=== PATIENT | female | born 1930 | race Caucasian/White ===

== ENCOUNTER 2019-09-08 07:20 | Inpatient (IN) ==
[2019-09-08] MEDS ORDERED: MORPHINE IV ONE (07:43)
[2019-09-08] MEDS ORDERED: ZOFRAN IV ONE (07:43)
[2019-09-08] MEDS ORDERED: NS 1,000 ML IV ONE (07:43)
--- NOTE | 2019-09-08 08:12 | EKG Report ---
Test Performed on : 09/08/2019 07:51:44 AM Test Reason : fall Blood Pressure : / mmHG Vent. Rate : 069 BPM Atrial Rate : 070 BPM P-R Int : 000 ms QRS Dur : 114 ms QT Int : 452 ms P-R-T Axes : 000 -12 -37 degrees QTc Int : 484 ms Accelerated Junctional rhythm. Incomplete right bundle branch block Inferior infarct , age undetermined ST & T wave abnormality, consider anterior ischemia Abnormal ECG No previous ECGs available Unconfirmed Result
[2019-09-08 08:28] LABS: BASO# 0.02 X1000 (0.0-0.2); BASO% 0.2 % (0.0-0.8); EOS# 0.04 X1000 (0.0-0.7); EOS% 0.3 % (0.0-10.0); HEMATOCRIT 34.7 % (37.0-47.0); IMM GRAN# 0.06 X1000 (0.0-0.04); IMM GRAN% 0.5 % (0.0-0.5); MCHC 31.7 g/dL (33-37); MCV 97.7 FL (81-99); MONO# 0.98 X1000 (0.11-0.59); MONO% 7.4 % (1.7-9.3); MPV 8.8 FL (7.4-10.4); NEUT# 10.96 X1000 (1.4-6.5); NEUT% 82.6 % (42.2-75.2); PLT 452 X1000 (130-400); RBC 3.55 XMIL (4.2-5.4); RDW 13.7 % (11.5-14.5); WBC 13.26 X1000 (4.8-10.8)
--- NOTE | 2019-09-08 08:44 | PROVIDER DOCUMENTATION ---
HPI-Musculoskeletal Pain/Inj - GENERAL Chief Complaint: Fall Stated Complaint: FALL / HIP Time Seen by Provider: 09/08/19 07:35 Source: patient, family (Granddaughter and daughter) - HX OF PRESENT ILLNESS-MUSKULOSKELTAL Nature of Presenting Problem: Recently moved here from [place], was bending over trying to put a sock on and fell over on right hip. Patient lifted up by Granddaughter, able to bear weight with lots of pain and assistance. Has history of prior hip surgery, but can't remember which one. Granddaughter states "she has dementia." Quality of Pain: reports: stabbing Severity in ED: severe Onset/Duration: 1 hour ago Timing: still present, constant Modifying Factors: worse with: movement, palpation, other (bearing weight) Any recent injury?: Yes Locality of Occurance: Home Similar Symptoms Previously?: No Recently seen or treated by another doctor?: No - FALL INJURY Location of Pain/Injury: reports: lower extremity (right) Pain Radiation: reports: no radiation Reason for Fall: reports: lost balance Symptoms prior to fall:: reports: none Loss of Consciousness: no loss of consciousness Injury Associated Symptoms: reports: denies symptoms - HIP/PELVIS PAIN/INJURY Hip Pain Location: reports: hip (R) Pain Radiation: reports: other (right knee) Context / Method of Injury: reports: fall Associated Symptoms: reports: denies symptoms Review of Systems - Adult - REVIEW OF SYSTEMS - ADULT Constitutional: reports: no symptoms reported Eyes: reports: no symptoms reported Ears, Nose, Mouth & Throat: reports: no symptoms reported Cardiovascular: reports: no symptoms reported Respiratory: reports: no symptoms reported Gastrointestinal: reports: no symptoms reported Genitourinary: reports: no symptoms reported Musculoskeletal: reports: no symptoms reported Integumentary: reports: no symptoms reported Neurological: reports: no symptoms reported Psychiatric: reports: no symptoms reported Endocrine: reports: no symptoms reported Hematologic/Lymphatic: reports: no symptoms reported Allergic/Immunologic: reports: no symptoms reported All Other Systems: Reviewed and Negative Past History - Adult - PAST MEDICAL HISTORY-ADULT Review of Records: reports: Nursing Assessment Review, Medications Reviewed, Social history reviewed & non-contributory. Major Childhood Illnesses: reports: denies history Cardiovascular: reports: HTN, hyperlipidemia Respiratory: reports: denies history Gastrointestinal: reports: denies history Obstetrical/Gynecological: reports: denies history Genitourinary: reports: denies history Musculoskeletal: reports: denies history Neurological: reports: Alzheimer's, dementia Endocrine/Immune: reports: denies history Other Conditions: reports: denies history - PRIOR SURGERIES/PROCEDURES Surgical/Procedure History: reports: reviewed, not pertinent - IMMUNIZATION STATUS Childhood Immunizations: UTD Flu Vaccine: NUTD - FAMILY HISTORY Family History: reviewed, not pertinent - SOCIAL HISTORY Smoking: quit greater than 1 year, cigarettes Substance Use: none/never Alcohol Use Frequency: never Living Situation: family Physical Exam-Injury Related - Physical Exam-Injury Related Initial Vital Signs Reviewed: Yes (VSSAF) General Appearance: appears well, alert, no apparent distress, other (elderly, sl confusion) Eyes: PERRL/EOMI, pink conjunctivae Head, Ears, Nose, Mouth & Throat: normocephalic/atraumatic, moist mucous membranes, normal ENT inspection, hearing deficit Neck: non-tender, full range of motion, supple, normal inspection. negative: pain with axial compression Respiratory: chest non-tender, lungs clear, normal breath sounds, no pleuratic chest pain, no respiratory distress, no accessory muscle use Cardiovascular: normal peripheral pulses, regular rate, rhythm, no edema, no gallop, no JVD, no murmur Abdominal Exam: normal bowel sounds, non tender, soft, no organomegaly, no pulsatile mass Lymphatic: no adenopathy Back Exam: normal inspection, no CVA tenderness, no vertebral tenderness. negative: decreased range of motion Extremity: no pedal edema, no calf tenderness, normal capillary refill, tenderness (bilateral hips, right much worse than left, decreased ROM. Some mild right knee tenderness to palpation) DTR: bicep (R): 2+, bicep (L): 2+ Integumentary: normal color, warm/dry Psych/Mental Status: normal mood/affect, normal thought content, normal thought process, oriented x 3 (but still somewhat confused) - Glascow Coma Score Best Eye Response ([place]): (4) open spontaneously Best Verbal Response ([place]): (4) confused conversation Best Motor Response ([place]): (6) obeys commands Margarita Total: 14 Progress - PLAN OF CARE/RESULTS Progress/Plan/Lab Results: Vital Signs - 8 hr 09/08/ 07:24 Temperature 97.5 F L Pulse Rate 73 Respiratory Rate 17 Blood Pressure 146/55 O2 Sat by Pulse Oximetry 93 L Laboratory Results - last 24 hr 09/08/19 09/08/19 09/08/19 07:55 07:55 07:55 WBC 13.26 H RBC 3.55 L Hgb 11.0 L Hct 34.7 L MCV 97.7 MCH 31.0 MCHC 31.7 L RDW Std Deviation 13.7 Plt Count 452 H MPV 8.8 Immature Gran % (Auto) 0.5 Neut % (Auto) 82.6 H Lymph % (Auto) 9.0 L [place] % (Auto) 7.4 Eos % (Auto) 0.3 Baso % (Auto) 0.2 Immature Gran # (Auto) 0.06 H Neut # (Auto) 10.96 H Lymph # (Auto) 1.20 [place] # (Auto) 0.98 H Eos # (Auto) 0.04 Baso # (Auto) 0.02 PT INR PTT (Actin FS) Sodium 138 Potassium 3.8 Chloride 100 Carbon Dioxide 25 Anion Gap 13 BUN 8 Creatinine 0.6 Estimated GFR/1.73 m2 > 60 BUN/Creatinine Ratio 13 Glucose 130 H Calculated Osmolality 276 Calcium 8.7 L Magnesium 1.9 Total Bilirubin 0.40 AST 18 ALT 6 L Alkaline Phosphatase 99 Troponin T High Sens Lrh-J-Dcdneifxyjd Pept Total Protein 7.0 Albumin 3.2 L Globulin 4.0 Albumin/Globulin Ratio 1.0 TSH 4.03 Urine Source Urine Color Urine Clarity Urine pH Ur Specific [place] Urine Protein Urine Ketones Urine Blood Urine Nitrite Urine Bilirubin Urine Urobilinogen Urine Microscopic RBC Urine WBC Urine Microscopic WBC Ur Epithelial Cells Urine Bacteria Urine Glucose Blood Type Confirm 09/08/19 09/08/19 09/08/19 07:55 07:55 07:55 WBC RBC Hgb Hct MCV MCH MCHC RDW Std Deviation Plt Count MPV Immature Gran % (Auto) Neut % (Auto) Lymph % (Auto) [place] % (Auto) Eos % (Auto) Baso % (Auto) Immature Gran # (Auto) Neut # (Auto) Lymph # (Auto) [place] # (Auto) Eos # (Auto) Baso # (Auto) PT 13.7 INR 1.00 PTT (Actin FS) 30.1 Sodium Potassium Chloride Carbon Dioxide Anion Gap BUN Creatinine Estimated GFR/1.73 m2 BUN/Creatinine Ratio Glucose Calculated Osmolality Calcium Magnesium Total Bilirubin AST ALT Alkaline Phosphatase Troponin T High Sens 15 Nlm-Y-Enhgsszvotm Pept 1000 H Total Protein Albumin Globulin Albumin/Globulin Ratio TSH Urine Source Urine Color Urine Clarity Urine pH Ur Specific [place] Urine Protein Urine Ketones Urine Blood Urine Nitrite Urine Bilirubin Urine Urobilinogen Urine Microscopic RBC Urine WBC Urine Microscopic WBC Ur Epithelial Cells Urine Bacteria Urine Glucose Blood Type Confirm 09/08/19 09/08/19 08:38 08:57 WBC RBC Hgb Hct MCV MCH MCHC RDW Std Deviation Plt Count MPV Immature Gran % (Auto) Neut % (Auto) Lymph % (Auto) [place] % (Auto) Eos % (Auto) Baso % (Auto) Immature Gran # (Auto) Neut # (Auto) Lymph # (Auto) [place] # (Auto) Eos # (Auto) Baso # (Auto) PT INR PTT (Actin FS) Sodium Potassium Chloride Carbon Dioxide Anion Gap BUN Creatinine Estimated GFR/1.73 m2 BUN/Creatinine Ratio Glucose Calculated Osmolality Calcium Magnesium Total Bilirubin AST ALT Alkaline Phosphatase Troponin T High Sens Xqk-E-Dmeqpfzrile Pept Total Protein Albumin Globulin Albumin/Globulin Ratio TSH Urine Source CATH Urine Color YELLOW Urine Clarity CLOUDY A Urine pH 7.0 Ur Specific [place] 1.010 Urine Protein 100 A Urine Ketones TRACE A Urine Blood LARGE A Urine Nitrite POSITIVE A Urine Bilirubin NEGATIVE Urine Urobilinogen 4.0 H Urine Microscopic RBC TNTC A Urine WBC MODERATE A Urine Microscopic WBC TNTC A Ur Epithelial Cells <10 Urine Bacteria 4+ Urine Glucose NEGATIVE Blood Type Confirm B POSITIVE Orders Category Date Time Status [place] Cath Insertion ORDERED Care 09/08/19 07:40 Active Nursing- Obtain EKG once Care 09/08/19 07:40 Active Oxygen Therapy- ED Nursing DIRECTED Care 09/08/19 08:47 Active Saline Loc NOW Care 09/08/19 07:40 Active NPO Diet 09/08/19 07:40 Active CHEST-PORTABLE [RAD] Stat Exams 09/08/19 07:[address] HEAD/C-SPINE W/O CONTRAST [CT] Stat Exams 09/08/19 08:[address] PELVIS W/O CONTRAST [CT] Stat Exams 09/08/19 08:15 Completed KNEE 3 VIEWS RIGHT [RAD] Stat Exams 09/08/19 07:42 Completed XRAY PELVIS W/HIP 2-3VW RT [RAD] Stat Exams 09/08/19 07:42 Completed CBC WITH ELECTRONIC DIFF [HEME] Stat Lab 09/08/19 07:55 Completed COMPREHENSIVE METABOLIC PANEL [CHEM] Stat Lab 09/08/19 07:55 Completed MAGNESIUM [CHEM] Stat Lab 09/08/19 07:55 Completed PRO B-NATRIURETIC PEPTIDE Stat Lab 09/08/19 07:55 Completed PROTIME WITH INR [COAG] Stat Lab 09/08/19 07:55 Completed PTT [COAG] Stat Lab 09/08/19 07:55 Completed TROPONIN T HIGH SENSITIVITY Stat Lab 09/08/19 07:55 Completed TSH Stat Lab 09/08/19 07:55 Completed TYPE & SCREEN [BBK] Stat Lab 09/08/19 07:55 Results URINE CULTURE [RM] Routine Lab 09/08/19 08:58 Ordered 0.9% Sodium Chloride Inj [Ns] 1,000 ml Med 09/08/19 07:43 Active IV 75 mls/hr Morphine Med 09/08/19 07:43 Discontinued 4 mg IV NOW ONE Ondansetron [Zofran] Med 09/08/19 07:43 Discontinued 4 mg IV NOW ONE Rocephin 1 gm/Ns IV Now Med 09/08/19 09:31 Ordered CefTRIAXONE [Rocephin] 1 gm 0.9% Sodium Chloride Inj [Ns] 50 ml IV NOW EKG [EKG] Stat Ther 09/08/19 07:40 Draft Result Diagrams: 09/08/19 07:55 09/08/19 07:55 - REASSESSMENT Reassessment #1 Time Reassessed: 09:31 Status: improving (Given morphine/ondansetron IV for pain, IVF and IV rocephin for UTI) - EKG 1 Time of EKG reading by physician:: 08:00 EKG Read and Signed by:: Kendell Hernandez EKG Interpretation (*Must complete 3 of following elements*): Abnormal Rate: 69 Rhythm: nsr [place]: normal QRS: RBB DC Interval: normal ST Wave: non-specific ST changes Comments: artifact present, disagree with computer interpretation - XRAY 1 XRAY: Right XRAY Study: Hip Impression: Abnormal, See EMR Report ( XRAY PELVIS W/HIP 2-3VW RT - 09/08/2019 INDICATION: fall TECHNIQUE: Three views COMPARISON: None FINDINGS: There is a severely displaced, severely comminuted intertrochanteric fracture of the right hip. No dislocation. There is a left femoral neck stabilization elodia. No visible fracture to the pelvis. IMPRESSION: Severely comminuted, displaced intertrochanteric right proximal femur fracture. Electronically signed by Ronnie Torres 09/08/2019 9:02 AM 09/08/19 0902 Interpreting Physician: Ronnie Torres MD Dictated Date/Time: 09/08/19 09 cc: Kendell Hernandez MD; None,PCP) 2 XRAY Study: Chest Impression: Abnormal, See EMR Report ( Signed EXAM: CHEST-PORTABLE - 09/08/2019 HISTORY: fall TECHNIQUE: Portable chest COMPARISON: None. FINDINGS: Heart size appears within normal limits. There is transvenous cardiac pacemaker. There is mild prominence of the aortic knob/arch. There is mild subsegmental atelectasis at the left base. There is a 4.2 cm round opacity at the right lower lung. There is no pleural effusion or pneumothorax identified. IMPRESSION: Mild subsegmental atelectasis at left base. 4.2 cm rounded opacity at right lower lung. While this conceivably could represent loculated pleural fluid in the minor fissure, mass lesion cannot be excluded. CT thorax is recommended for further evaluation. Electronically signed by Varghese Ritchie 09/08/2019 9:06 AM 09/08/19 0906 Interpreting Physician: Varghese Ritchie MD Dictated Date/Time: 09/08/19 09 cc: Kendell Hernandez MD; None,PCP) 3 XRAY: Right XRAY Study: Knee Impression: Abnormal ( KNEE 3 VIEWS RIGHT - 09/08/2019 INDICATION: right knee pain TECHNIQUE: Three views COMPARISON: None FINDINGS: There is no fracture or dislocation. Joint spaces are preserved. There is severe vascular disease with calcification of the popliteal artery. Bones are osteopenic. IMPRESSION: Peripheral arterial disease. Electronically signed by Ronnie Torres 09/08/2019 9:01 AM 09/08/19 09 Interpreting Physician: Ronnie Torres MD Dictated Date/Time: 09/08/19 09 cc: Kendell Hernandez MD; None,PCP), See EMR Report - CT/MRI 1 CT Study: Head Impression: Abnormal ( EXAM: CT HEAD/C-SPINE W/O CONTRAST - 09/08/2019 HISTORY: head injury/pain TECHNIQUE: CT head/cervical spine without contrast COMPARISON: None. FINDINGS: CT head: There is generalized mild atrophic changes and mild chronic microvascular ischemic changes. There is no indication of recent infarct, although acute infarcts may not be immediately visible. There are atherosclerotic calcifications noted at the base the brain. There is no evidence of intracranial hemorrhage, mass effect, or midline shift. There is no evidence of skull fracture. The skull is possibly osteopenic. CT cervical spine: There is multilevel degenerative disease. There is no fracture, acute sub luxation, or precervical soft tissue swelling identified. There are atherosclerotic calcifications noted at the carotid bulb regions. IMPRESSION: CT head: No visible acute intracranial abnormality. No evidence of intracranial injury. CT cervical spine: Multilevel degenerative disease. No evidence of fracture or acute subluxation. This exam was performed using automated exposure control, adjustment of mA or kV according to patient size, and/or use of iterative reconstruction technique. Electronically signed by [facility] 09/08/2019 8:52 AM 09/08/19 0852 Interpreting Physician: Varghese Ritchie MD Dictated Date/Time: 09/08/19 0846 cc: Kendell Hernandez MD; None,PCP) 2 CT Study: Pelvis Impression: Abnormal ( EXAM: CT PELVIS W/O CONTRAST - 09/08/2019 HISTORY: fall TECHNIQUE: CT bony pelvis without contrast COMPARISON: None. FINDINGS: The bones are possibly osteopenic. There is an intertrochanteric fracture of the right femur. There is no substantial varus deformity identified. There is no other fracture or dislocation identified. There is intramedullary elodia noted at the proximal left femur. There is air in the urinary bladder lumen, possibly from recent instrumentation. There is diverticulosis at sigmoid colon. The distal aorta is mildly ectatic up to 2.3 cm. There are lower lumbar spine dege nerative changes noted. IMPRESSION: Possible osteopenia. Intertrochanteric fracture of right femur. This exam was performed using automated exposure control, adjustment of mA or kV according to patient size, and/or use of iterative reconstruction technique. Electronically signed by Varghese Zipnosis 09/08/2019 8:56 AM 09/08/19 0856 Interpreting Physician: Varghese Ritchie MD Dictated Date/Time: 09/08/1951 cc: Kendell Hernandez MD; None,PCP), See EMR Report - CONSULTS/PCP/HOSPITALIST Notification #1 *Consult/PCP/Hospitalist*: Feroz Time Discussed: 09:27 Consult Disposition: Will see in ED #2 Consult: Ralph called at 09 Consult Disposition: Admit (to hospitalist) Departure - Departure Date of Disposition Decision: 09/08/19 Time of Disposition Decision: 09:32 DIAGNOSIS: UTI (urinary tract infection), bacterial Fall as cause of accidental injury at home as place of occurrence Qualifiers: Encounter type: initial encounter Qualified Code(s): W19.XXXA - Unspecified fall, initial encounter; Y92.009 - Unspecified place in unspecified non-institutional (private) residence as the place of occurrence of the external cause Intertrochanteric fracture of right femur Qualifiers: Encounter type: initial encounter Fracture type: closed Fracture alignment: displaced Qualified Code(s): S72.141A - Displaced intertrochanteric fracture of right femur, initial encounter for closed fracture Disposition: ADMITTED INPATIENT 09 Certified Medical Emergency: Emergent Condition: Stable Referrals and Follow-Ups: None,PCP [Primary Care Provider] - - Critical Care Note This patient required my direct & personal management of CC.: No Attestation - Physician/ RANCHO Attestation Patient care was provided by Advanced Practice Provider:: No The physician spent face to face time with patient:: Yes Advanced Practice Provider documentation review:: Supervising physician onsite and consulted in the evaluation and care of this patient. The physician did have a face to face encounter with the patient.
[2019-09-08 08:49] LABS: URINE SOURCE CATH
--- NOTE | 2019-09-08 08:55 | Diag Imaging Result Doc PS360 ---
EXAM: CT HEAD/C-SPINE W/O CONTRAST - 09/08/2019 HISTORY: head injury/pain TECHNIQUE: CT head/cervical spine without contrast COMPARISON: None. FINDINGS: CT head: There is generalized mild atrophic changes and mild chronic microvascular ischemic changes. There is no indication of recent infarct, although acute infarcts may not be immediately visible. There are atherosclerotic calcifications noted at the base the brain. There is no evidence of intracranial hemorrhage, mass effect, or midline shift. There is no evidence of skull fracture. The skull is possibly osteopenic. CT cervical spine: There is multilevel degenerative disease. There is no fracture, acute subluxation, or precervical soft tissue swelling identified. There are atherosclerotic calcifications noted at the carotid bulb regions. IMPRESSION: CT head: No visible acute intracranial abnormality. No evidence of intracranial injury. CT cervical spine: Multilevel degenerative disease. No evidence of fracture or acute subluxation. This exam was performed using automated exposure control, adjustment of mA or kV according to patient size, and/or use of iterative reconstruction technique. Electronically signed by Varghese Ritchie 09/08/2019 8:52 AM
[2019-09-08 08:56] LABS: BILIRUBIN URINE NEGATIVE (NEGATIVE); CLARITY CLOUDY (CLEAR); COLOR YELLOW; GLUCOSE URINE NEGATIVE (NEGATIVE); KETONE URINE TRACE mg/dL (NEGATIVE); URINE BACTERIA 4+ /HFP; URINE EPITHELIAL CELLS <10 /HPF (<10); URINE RBC TNTC /HPF (<10); URINE WBC TNTC /HPF (<10)
[2019-09-08 08:57] LABS: BLOOD URINE LARGE (NEGATIVE); LEUKOCYTES URINE MODERATE (NEGATIVE); NITRITE URINE POSITIVE (NEGATIVE); PROTEIN URINE 100 mg/dL (NEGATIVE)
[2019-09-08 08:57] LABS: PROTIME 13.7 Seconds (11.0-16.0)
[2019-09-08 08:58] LABS: PTT 30.1 Seconds (22.3-41.8)
--- NOTE | 2019-09-08 08:59 | Diag Imaging Result Doc PS360 ---
EXAM: CT PELVIS W/O CONTRAST - 09/08/2019 HISTORY: fall TECHNIQUE: CT bony pelvis without contrast COMPARISON: None. FINDINGS: The bones are possibly osteopenic. There is an intertrochanteric fracture of the right femur. There is no substantial varus deformity identified. There is no other fracture or dislocation identified. There is intramedullary elodia noted at the proximal left femur. There is air in the urinary bladder lumen, possibly from recent instrumentation. There is diverticulosis at sigmoid colon. The distal aorta is mildly ectatic up to 2.3 cm. There are lower lumbar spine degenerative changes noted. IMPRESSION: Possible osteopenia. Intertrochanteric fracture of right femur. This exam was performed using automated exposure control, adjustment of mA or kV according to patient size, and/or use of iterative reconstruction technique. Electronically signed by Varghese Ritchie 09/08/2019 8:56 AM
--- NOTE | 2019-09-08 09:03 | Diag Imaging Result Doc PS360 ---
KNEE 3 VIEWS RIGHT - 09/08/2019 INDICATION: right knee pain TECHNIQUE: Three views COMPARISON: None FINDINGS: There is no fracture or dislocation. Joint spaces are preserved. There is severe vascular disease with calcification of the popliteal artery. Bones are osteopenic. IMPRESSION: Peripheral arterial disease. Electronically signed by Ronnie Torres 09/08/2019 9:01 AM
[2019-09-08 09:04] LABS: AGAP 13; ALBUMIN 3.2 g/dL (3.5-5.0); ALKALINE PHOSPHATASE 99 U/L (32-104); BUN 8 mg/dL (8-22); CALCIUM 8.7 mg/dL (8.8-10.2); CHLORIDE 100 mmol/L (98-107); COSMO 276; CREATININE 0.6 mg/dL (0.5-0.9); ESTIMATED GFR > 60; GLUCOSE 130 mg/dL (70-104); GOT 18 U/L (10-30); GPT 6 U/L (10-36); MAGNESIUM 1.9 mg/dL (1.5-2.7); POTASSIUM 3.8 mmol/L (3.5-5.1); SODIUM 138 mmol/L (136-145); TCO2 25 mmol/L (25-35)
--- NOTE | 2019-09-08 09:05 | Diag Imaging Result Doc PS360 ---
XRAY PELVIS W/HIP 2-3VW RT - 09/08/2019 INDICATION: fall TECHNIQUE: Three views COMPARISON: None FINDINGS: There is a severely displaced, severely comminuted intertrochanteric fracture of the right hip. No dislocation. There is a left femoral neck stabilization elodia. No visible fracture to the pelvis. IMPRESSION: Severely comminuted, displaced intertrochanteric right proximal femur fracture. Electronically signed by Ronnie Torres 09/08/2019 9:02 AM
--- NOTE | 2019-09-08 09:08 | Diag Imaging Result Doc PS360 ---
EXAM: CHEST-PORTABLE - 09/08/2019 HISTORY: fall TECHNIQUE: Portable chest COMPARISON: None. FINDINGS: Heart size appears within normal limits. There is transvenous cardiac pacemaker. There is mild prominence of the aortic knob/arch. There is mild subsegmental atelectasis at the left base. There is a 4.2 cm round opacity at the right lower lung. There is no pleural effusion or pneumothorax identified. IMPRESSION: Mild subsegmental atelectasis at left base. 4.2 cm rounded opacity at right lower lung. While this conceivably could represent loculated pleural fluid in the minor fissure, mass lesion cannot be excluded. CT thorax is recommended for further evaluation. Electronically signed by Varghese Ritchie 09/08/2019 9:06 AM
[2019-09-08] MEDS ORDERED: ROCEPHIN 1 GM in NS 50 ML IV ONE (09:31)
[2019-09-08] MEDS ORDERED: ZOFRAN IV PRN (11:07)
[2019-09-08] MEDS ORDERED: TYLENOL PO PRN (11:07)
[2019-09-08] MEDS ORDERED: NS 1,000 ML IV SCH (11:45)
--- NOTE | 2019-09-08 12:54 | Diag Imaging Result Doc PS360 ---
EXAM: CT THORAX W/CONTRAST 09/08/2019 HISTORY: right lung opacity TECHNIQUE: This exam was performed using automated exposure control, adjustment of mA or kV according to patient size, and/or use of iterative reconstruction technique. COMMENT: There is a lobulated mass present in the right lower lobe adjacent to the major fissure and lateral pleura, and measuring 4.4 cm in anterior posterior dimension. There is internal contrast enhancement. There is apparent COPD. There is dependent atelectasis in both lower lobes. There is a cyst in the upper pole of the right kidney. There are granulomata in the spleen. There is extensive coronary calcification. There are no filling defects in the pulmonary arteries. The aorta is partially calcified. There is an aberrant right subclavian artery. The ascending aorta is the upper limits of normal in size. There is no evidence of dissection. There is no evidence of significant adenopathy. There are spondylotic changes in the thoracic spine. No acute bony abnormalities are present. 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 Electronically signed by Emmanuel Lombardo 09/08/2019 12:52 PM
[2019-09-08] MEDS: MORPHINE IV PRN (13:05)
[2019-09-08] MEDS ORDERED: KEFZOL 2 GM/D5W 2 GM/50 ML IVPB IV ONE (15:27)
--- NOTE | 2019-09-08 19:07 | HISTORY AND PHYSICAL ---
PRIMARY CARE PROVIDER: Mary Anne Looney M.D. from [place], phone number [phone]. CHIEF COMPLAINT: Fall and urinary frequency. HISTORY OF PRESENT ILLNESS: Ms. Danay Rogers is an 89-year-old female with a medical history of coronary artery disease, permanent pacemaker, hypertension, hypothyroidism, GERD, hyperlipidemia, also with history of left hip replacement, who apparently at 2:30 this morning thought it was later than what it really was. She was attempting to get up and get dressed. She dropped a sock on the floor, bent down to pick it up and fell forward. She states she did not hit her head, and there are no obvious signs or symptoms of hitting her head, but she did, however, land on her right hip. She is also complaining of having urinary frequency but no other symptoms with that and that has been going on for about 2 weeks. She presents here. Imaging shows that she does have a right hip fracture and that she does have a urinary tract infections. We are going to transfer her to [facility] for evaluation of surgical repair on the right hip. PAST MEDICAL HISTORY: 1. Coronary artery disease with history of AR. 2. Hypertension. 3. Hypothyroidism. 4. GERD. 5. Hyperlipidemia. SURGICAL HISTORY: 1. Permanent pacemaker with leads replaced at one point, generator replaced at one point and this is a [employer]. 2. Left hip replacement. 3. Hysterectomy. SOCIAL HISTORY: She just moved here this past Thursday from [place]. Her grandson and [id number] is the home she has moved into, who are both now the power of erisa attorney. She quit smoking over 60 years ago. No alcohol, no drugs, and she uses a walker to get around. FAMILY HISTORY: Mother, stroke. Father, heart attack. ALLERGIES: No known drug allergies. HOME MEDICATIONS: 1. Aspirin enteric-coated 81 mg p.o. daily. 2. Cozaar 25 mg p.o. daily. 3. Synthroid 75 mcg p.o. daily. 4. Mirtazapine 15 mg p.o. nightly. 5. Ranitidine 150 mg p.o. daily. 6. Simvastatin 20 mg p.o. nightly. 7. Toprol-XL 50 mg p.o. daily. REVIEW OF SYSTEMS: Fourteen-point review of systems are complete and all were negative except those mentioned above in HPI. PHYSICAL EXAMINATION: VITAL SIGNS: Temperature 97.5 degrees, heart rate 73, respiratory rate 17, blood pressure 146/55, O2 saturation 93% on room air. GENERAL: Ms. Danay Rogers is an 89-year-old female. She is a little bit hard of hearing, but she is able answer questions appropriately, and she is in no acute distress. HEENT: Atraumatic, normocephalic. Pupils are equal and reactive. She has got glasses on. Extraocular movements intact. Mucous membranes are dry. NECK: Trachea midline. CARDIOVASCULAR: S1, S2. Regular rate and rhythm. No rubs, gallops, murmurs. No lower extremity edema. +2 dorsalis and radial pulses. Negative JVD or carotid bruits. PULMONARY: Clear to auscultation bilateral breath sounds. No accessory muscle use or work of breathing noted. GASTROINTESTINAL: Soft, nontender, nondistended. Positive bowel sounds x4. EXTREMITIES: Unable to move the right lower extremity secondary to fracture. Normal strength in the left lower extremity and did not assess range of motion on the lower extremity. She has got a full range of motion in upper extremities. NEUROLOGIC: Oriented x3. Follows commands. Sensory is intact. SKIN: Warm, dry, intact. LABORATORY DATA: White blood cells 13,000, hemoglobin 11, hematocrit 34, platelet count 452,000. INR is 1.0, PTT is 30.1. Sodium 138, potassium 3.8, BUN 8, creatinine 0.6, glucose 130, calcium 8.7, magnesium 1.9, bilirubin 0.40, AST 18, ALT 6, troponin 15. ProBNP 1000, albumin 3.2, TSH 4.03. Urinalysis cloudy, 100 protein, trace ketones, large blood, positive nitrites, 4 urobilinogen, too numerous to count red blood cells, moderate white blood cells, too numerous to count white blood cells, 4+ bacteria. IMAGING: EKG: Accelerated junctional rate 69, QTc is 484, but this may be a paced rhythm as well. Chest x-ray: Left base atelectasis, opacity in the right lower lung at 4.2 cm. There is a recommendation for a CT of the thorax. Hip and pelvic x-ray: Severely comminuted displaced intertrochanteric right proximal femur fracture. Knee x-ray on the right: Peripheral arterial disease. Head and cervical spine CT: No acute intracranial disease. There is multilevel degenerative disease of the spine. Pelvic CT: Possible osteopenia, and it shows an intertrochanteric fracture of the right femur. ASSESSMENT AND PLAN: 1. Right hip fracture. It is a comminuted displaced intertrochanteric right proximal femur fracture. We will put a [place] in. We will consult Orthopedic Surgery for further evaluation of surgical repair, and she will be strict bed rest. 2. Coronary artery disease. Continue aspirin and beta agustín and statin. 3. Hyperlipidemia. Continue statin. 4. Gastrointestinal reflux disease. Continue ranitidine. 5. Hypothyroidism. Continue Synthroid. 6. Urinary tract infection, who has been experiencing urinary frequency over the last 2 weeks, and she is on Rocephin 1 g IV q.24 hours for that. 7. 4.2 rounded opacity of the right lower lung. There was a recommendation for CT of the thorax. We will order that to further evaluate the opacity. There is a history of smoking, and I believe there is a higher history of secondhand smoke. 8. Deep venous thrombosis prophylaxis. Sequential compression devices. Dictated by SHIKHA Mckeon for Herman Redman MD cc: SHIKHA Mckeon MD
[2019-09-08] MEDS: REMERON PO SCH (20:20)
[2019-09-08] MEDS: ZOCOR PO SCH (20:20)
--- NOTE | 2019-09-08 22:57 | PROGRESS NOTE ---
DATE: 09/08/2019 SUBJECTIVE: I evaluated the patient at bedside, who has been transferred from [facility]. Ms. Rogers is complaining of right lower extremity pain. She denies any chest pain, shortness of breath, or cough. She denies known history of cancer. OBJECTIVE: Vital signs: Temperature of 97.7 degrees, pulse 71, respiratory rate 16, blood pressure of 96/75, and she is saturating 98% on 2 L nasal cannula. Respiratory: Air entry bilaterally equal. No wheeze, rhonchi or crackles. Cardiovascular: S1 normal. No murmur or gallop. Abdomen: Soft, nontender. Extremities: No lower extremity edema. She is able to wiggle her toes. Her right lower extremity is abducted and externally rotated. Her skin appears warm to touch in both legs. LABORATORY DATA: Suggestive of leukocytosis, hemoglobin of 11, platelet count of 452,000, BUN of 8 and creatinine 0.6. She does have pyuria. Urine culture is pending. RADIOLOGIC DATA: Imaging of chest, pelvis CT and x-ray reviewed. ASSESSMENT AND PLAN: 1. Right intertrochanteric comminuted displaced fracture of femur. 2. Pyuria, likely due to acute cystourethritis. 3. Lung mass. 4. Hypothyroidism and chronic gastroesophageal reflux disease. PLAN: Start the patient on intravenous antibiotics. Orthopedic team has been consulted. I talked with the patient that there is an abnormality in the right side of the lung; however, I would talk about the masslike opacity in detail when her daughter is around sometime tomorrow. cc: Juan Alberto Carnes MD
--- NOTE | 2019-09-08 23:39 | ORTHOPAEDICS CONSULTATION ---
DATE: 09/08/2019 CHIEF COMPLAINT: Fall with right hip pain. HISTORY OF PRESENT ILLNESS: This is an 89-year-old female who came into the emergency department, who reports she was trying to bend over and put on her sock and she fell over and landed on her right hip. She was lifted by her family and complained of instant pain in the right hip and was not able to ambulate. She has had prior hip surgery in [place] on the left side. The family reports that she does not actually have dementia or Alzheimer's. X-rays were performed, which showed intertrochanteric hip fracture on the right side and orthopedics was consulted to come see the patient. PAST MEDICAL HISTORY: Includes hypertension, hyperlipidemia. PAST SURGICAL HISTORY: Left hip surgery. ALLERGIES: There are no known drug allergies. MEDICATIONS: Include levothyroxine 75 mcg daily, losartan 25 mg daily, mirtazapine 50 mg daily, Zantac 150 mg daily, Zocor 20 mg daily, aspirin 81 mg daily, and metoprolol ER 50 mg daily. LAB RESULTS: White blood cells 13.26, red blood cells 3.55, hemoglobin 11.0, hematocrit 34.7, platelets is 452,000. INR is 1.0. Sodium 138, potassium 3.8, chloride 100, BUN 8, creatinine 0.6. Glucose is 130, calcium 8.7. ProBNP is 1000. Albumin is 3.2. Urine showed cloudy with positive for ketones, blood and nitrites as well as white blood cells consistent with UTI. DIAGNOSTIC IMAGING: Review of x-rays does show a comminuted displaced right intertrochanteric hip fracture. Review of head CT shows no acute trauma or internal injury. Review of chest CT shows right lower lobe mass of 4.4 cm of the lung. REVIEW OF SYSTEMS: A 14-point review of systems was performed. Pertinent positives listed in the HPI. SOCIAL HISTORY: Smoking, the patient smoked for several years and has been quit for a year. The patient denies alcohol or drug use. PHYSICAL EXAMINATION: General: Patient is awake and sitting in the hospital bed in no acute distress. HEENT: Head is atraumatic, normocephalic. Eyes equal, round, reactive. Neck: Supple. Chest: There is equal chest expansion, rise and fall. Cardiovascular: There is regular rate and rhythm. Extremity: Right lower extremity, there is some shortening with external rotation of the right lower extremity. There is anterior joint line tenderness about the hip as well as lateral tenderness. There is no redness or signs of infection. There is good pedal pulses of the right lower extremity. There is good capillary refill in the toes. ASSESSMENT: Right intertrochanteric hip fracture. PLAN: We will plan to place a trochanteric fixation nail about the right hip, hopefully today, if not tomorrow. The family agrees with this plan. All risks of surgeries, including damage to tendon, nerve, blood vessels, and were discussed with the patient's family. They wished to proceed. We will see if we can get her on today. If not, then it will be tomorrow. We will keep the patient NPO. Dictated by SHIKHA Bangura for Janes Rosas MD cc: SHIKHA Bangura
--- NOTE | 2019-09-09 02:43 | HISTORY AND PHYSICAL ---
ADDENDUM: The patient is an elderly female who just moved up from [place]. She apparently this morning was using a walker. Got up in the middle of the night to find some socks. Apparently tripped, fell, broke her hip. She has a comminuted fracture. Patient has a history of hypertension, Alzheimer's dementia. We are going to admit to the hospital. Certainly appears to have a urinary tract infection. We are going to place her on antibiotics, IV fluids. We will let her go ahead and eat as she does not need to have surgery today. She needs to have her urinary tract infection treated. She does have an elevation in her white count. I expect this is due to the UTI. Begin discussion with the granddaughter regarding code status and the difficulty of following physical therapy requirements after surgery. cc: Herman Redman MD
[2019-09-09 07:41] LABS: HEMATOCRIT 30.2 % (37.0-47.0); HEMOGLOBIN 9.7 g/dL (12.0-16.0); MCH 31.8 PG (27-31); MCHC 32.1 g/dL (33-37); MPV 8.9 FL (7.4-10.4); RBC 3.05 XMIL (4.2-5.4); WBC 6.16 X1000 (4.8-10.8)
[2019-09-09] MEDS: SYNTHROID PO SCH (07:45)
[2019-09-09] MEDS ORDERED: DULCOLAX PR ONE (07:54)
[2019-09-09 08:28] LABS: AGAP 11; ALB/GLOB RATIO 0.8; ALBUMIN 2.6 g/dL (3.5-5.0); ALKALINE PHOSPHATASE 76 U/L (32-104); BUN 14 mg/dL (8-22); CALCIUM 8.3 mg/dL (8.8-10.2); CHLORIDE 103 mmol/L (98-107); COSMO 276; CREATININE 0.6 mg/dL (0.5-0.9); ESTIMATED GFR > 60; GLUCOSE 87 mg/dL (70-104); GOT 12 U/L (10-30); GPT < 5 U/L (10-36); POTASSIUM 3.9 mmol/L (3.5-5.1); SODIUM 138 mmol/L (136-145); TCO2 24 mmol/L (25-35); TOTAL BILIRUBIN 0.39 mg/dL (0.20-1.00); TOTAL PROTEIN 5.9 g/dL (6.3-8.3)
[2019-09-09] MEDS ORDERED: COZAAR PO SCH (09:00)
[2019-09-09] MEDS ORDERED: KEFZOL 2 GM/D5W 2 GM/50 ML IVPB IV ONE (10:00)
[2019-09-09] MEDS: ROCEPHIN 1 GM in NS 50 ML IV SCH (10:36)
--- NOTE | 2019-09-09 10:59 | ORTHOPAEDICS PROGRESS NOTE ---
DATE: 09/09/2019 SUBJECTIVE: No acute events overnight. Pain is fairly controlled. Patient is ready to undergo surgery. She has been n.p.o. since midnight. She had a UTI upon admission and has received Rocephin for this. Please see the orthopedic consult for full history and physical. The patient has history of prior multiple falls due to unsteady gait pattern. She had a left hip fracture that was fixed down in [place] and has done okay with that. She denies any preexisting hip pain on the right side. OBJECTIVE: Vital Signs: Afebrile. Vital signs are stable. LABORATORY DATA: White count 6, hemoglobin 10, hematocrit is 30, platelets 334,000. PHYSICAL EXAMINATION: Examination of the right lower extremity shows leg to be shortened and externally rotated. Tender to palpation over anterior and lateral aspect of the hip. Nontender at her knee, leg, ankle and foot. Motor intact. EHL, tibialis anterior, gastrocsoleus complex. Sensation intact to light touch L3-S1. Dorsalis pedis pulse palpable. Thigh and calf soft and compressible. IMAGING: AP and lateral of the right hip and were reviewed demonstrating a right comminuted intertrochanteric femur fracture. CT scan of the pelvis was also obtained, again demonstrating a comminuted intertrochanteric femur fracture. ASSESSMENT: 89-year-old female with history of multiple falls, presents with right closed intertrochanteric femur fracture. PLAN: 1. A long discussion was had with the patient and her daughter regarding diagnosis and treatment options. She had a similar injury on the left side that was treated with intramedullary nailing. Given this fracture pattern. We will plan on treating this with closed reduction intramedullary nailing as well. Risks, benefits, alternative therapies were discussed with the patient and daughter regarding surgery. Risks of surgery include but not limited to risks of bleeding, infection, damage to nerves and vessels around the area, malunion, nonunion, continued pain following surgery, need for revision surgery. She also has risk of anesthesia including postoperative dementia, stroke, heart attack, even . Patient and daughter understand these risks. All questions were answered. Informed consent was obtained. 2. Plan will be for closed reduction intramedullary nailing, right intertrochanteric femur fracture to be done this afternoon. She will remain NPO until postoperatively. 3. Appreciate hospitalist recommendations. 4. Continue Rocephin for urinary tract infection. 5. Hold chemical deep venous thrombosis prophylaxis until postoperative. 6. Patient will likely need prison facility versus 24 hour home health care upon discharge.
[2019-09-09] MEDS: MORPHINE IV PRN ×2 (11:07→13:00)
[2019-09-09] MEDS: ASPIRIN EC PO SCH (11:16)
[2019-09-09] MEDS: PEPCID PO SCH (11:16)
[2019-09-09] MEDS: TOPROL XL PO SCH (11:16)
--- NOTE | 2019-09-09 12:34 | ORTHOPAEDICS PROGRESS NOTE ---
DATE: 09/09/2019 SUBJECTIVE: Ms. Rogers is laying in bed. She is complaining of constipation this morning. OBJECTIVE DATA: Right lower extremity: She still has tenderness to palpation at the hip. She is shortened and externally rotated. She is intrinsically intact to the right lower extremity. ASSESSMENT: Right intertrochanteric femur fracture. PLAN: We are still planning for a trochanteric femoral nailing today. Risks and benefits have been discussed with the patient and family. Risks include, but not limited to, damage to nerves, arteries, and veins, malunion, nonunion, hardware related issues, DVT, infection, poor wound healing, and risk of general anesthesia. The patient understands and wishes to proceed. We are going plan to do a spinal. I am going to give her a suppository now for her constipation. She has been NPO since midnight. We will get her done as soon as possible today. Dictated by SHIKHA Bautista for Janes Rosas MD cc: SHIKHA Bautista
--- NOTE | 2019-09-09 13:50 | PROGRESS NOTE ---
DATE: 09/09/2019 INTERVAL HISTORY: No acute events overnight. SUBJECTIVE: Ms. Rogers is complaining of right lower extremity pain. She just received intravenous morphine. Her daughter is at bedside. VITALS: Temperature 98.3 degrees, pulse 85, respiratory 18, blood pressure 140/54, and saturating 99% on 2 L nasal cannula. PHYSICAL EXAMINATION: General: Patient is in mild distress because of right lower extremity pain. HEENT: Oral cavity is dry. Lungs: Air entry bilaterally equal. No wheeze, rhonchi, or crackles. Heart: S1 and S2 normal. No rub, murmur or gallop. Abdomen: Soft, nontender. Extremities: Right lower extremity is abducted and externally rotated. She has a urine catheter. She is able to wiggle both lower extremity toes. She also has some edema of right lower extremity. LABORATORY: Labs suggestive of hemoglobin of 9.7, platelet 334,000, BUN 14, creatinine 0.6. Gram- negative elodia in urine culture. No further imaging. ASSESSMENT AND PLAN: 1. Comminuted intertrochanteric displaced fracture of right femur. Orthopedic team is planning close reduction internal fixation. Appreciate recommendation. Continue enoxaparin for DVT prophylaxis, holding 12 hours around surgery. Intravenous morphine as needed for pain. Intravenous cefazolin has been ordered by orthopedic team for surgical prophylaxis. 2. Acute cystourethritis due to gram-negative elodia. Continue intravenous ceftriaxone and follow up with final urine culture results. 3. Right lower lung mass suspicious for cancer. Patient had remote history of smoking. I discussed with the patient that she does have abnormality in the right side of the lung. However, I wanted to have presence of family before I break the news. The patient's daughter at bedside, however, tells me that she would prefer her daughter in-law to be present for the discussion since she was a registered nurse. I will follow up in the afternoon time. 4. Hypothyroidism and chronic gastroesophageal reflux disease. I will continue her home medications of famotidine and levothyroxine. 5. Essential hypertension. Continue metoprolol succinate extended release. Continue simvastatin for hyperlipidemia. DISPOSITION: Continue to monitor patient inside the hospital. I discussed with the daughter about the risk of post surgical complication including development of pneumonia, worsening of urinary tract infection, hospital-acquired, delirium, and blood loss. She understood it. All of her questions have been answered. cc: Juan Alberto Carnes MD
[2019-09-09] MEDS ORDERED: DIPRIVAN 1% ONE ×3 (15:05→16:01)
[2019-09-09] MEDS ORDERED: MILK OF MAGNESIA PO PRN (16:26)
--- NOTE | 2019-09-09 17:13 | Diag Imaging Result Doc PS360 ---
EXAM: XRAY HIP UNILATERAL RT HISTORY: Post Op TECHNIQUE: Three views COMPARISON: 09/08/2019 FINDINGS: There has been orthopedic fixation of the intertrochanteric right hip fracture. There is good alignment. Electronically signed by Pablo Lebron 09/09/2019 5:11 PM
--- NOTE | 2019-09-09 17:15 | Diag Imaging Result Doc PS360 ---
EXAM: FEMUR MIN 2 VIEWS RIGHT HISTORY: Post-op TECHNIQUE: Three views COMPARISON: 09/08/2017 FINDINGS: There has been orthopedic fixation of the intertrochanteric right hip fracture. There is a elodia through the shaft which appears in good position. The femoral head is well-positioned in the acetabulum. There are lateral skin bhaskar. IMPRESSION: Orthopedic fixation of the intertrochanteric right hip fracture. Electronically signed by Pablo Lebron 09/09/2019 5:13 PM
[2019-09-09] MEDS: LOVENOX SUBQ SCH ×2 (18:23→19:14)
--- NOTE | 2019-09-09 21:00 | OPERATIVE NOTE ---
PROCEDURE DATE: 09/09/2019 PREOPERATIVE DIAGNOSES: Right intertrochanteric femur fracture. POSTOPERATIVE DIAGNOSIS: Right intertrochanteric femur fracture. PROCEDURE: Closed reduction intramedullary nailing of right intertrochanteric femur fracture. SURGEON: Janes Rosas MD. HAMMERER TAB: Maria Luisa Sims whose help was needed for reduction and placement of implants and to speed up operating room efficiency. ANESTHESIA: Spinal with conscious sedation. COMPLICATIONS: None. SPECIMENS: None. DRAINS: None. BLOOD LOSS: 100 mL. IMPLANTS: Synthes right-sided TFN nail measuring 340 mm x 11 mm with a 90 mm cephalomedullary blade. INDICATIONS FOR PROCEDURE: Ms Rogers is a 89-year-old lady who presented to [facility] after sustaining same-level fall with a right intertrochanteric femur fracture. Orthopedic surgery was thus consulted for management of the fracture. Given her fracture pattern is decided she would benefit from closed reduction, intramedullary nailing of the fracture. Risks, benefits, alternative therapies were discussed the patient and family regarding surgery. Risks of surgery include but not limited to risks of bleeding, infection, damage to nerves and vessels around the area, malunion, nonunion, need for revision surgery. There is also risk of anesthesia including blood clot, stroke, heart attack, even . The patient understands these risks. All questions were answered. Informed consent was obtained. PROCEDURE IN DETAIL: Ms. Rogers was identified by wristband and greeted in preop holding area on 09/09/2019. Her right lower extremity which was the operative side was marked with indelible ink per [facility] [employer] protocol. Following this patient was transferred back to the operating room for surgery. Upon entering the OR spinal anesthetic was placed on her hospital bed. She was then transferred in supine position onto [place] table. All bony prominences were well padded. Legs were placed in the boot holders in a scissor position. Reduction maneuver was performed. Fluoroscopy was brought in confirming reduction of her intertrochanteric femur fracture. At this time the right lower extremity was then prepped and draped in routine sterile fashion. Formal time-out was performed confirming correct patient, procedure, operative site, operative side, administration of preop antibiotics. Everyone was in agreement. Patient received 2 g Ancef prior to incision. A 10 blade knife was used to make standard 3 cm incision about 2 cm proximal to the greater trochanter. Knife was used to dissect through skin, subcutaneous tissue and deep fascia onto the tip of the greater trochanter. Guide pin for the nail was then placed on the tip of the greater trochanter. When we were satisfied with starting point on both AP and lateral views guidewire was then driven down into the level of the lesser trochanter. At this time we used the entry reamer to ream into the canal. Ball-tipped guidewire was then placed down the level of the knee. AP and lateral images of the knee were taken confirming center-center position of the ball-tip guidewire. At this time measuring device was used to measure the length of nail which was found to be 340 mm. We then used a 12.5 mm reamer to ream the femoral shaft. A Synthes 340 mm x 11 mm TFN nail was then opened and assembled on the back table. At this time, the soft tissue guide was removed and the nail was inserted in routine fashion. When we were satisfied with the placement of the nail our 2nd more distal incision was then made through the cannula using long-handled knife. Knife was used to make a 2 cm incision through skin, subcutaneous fat and IT band. At this time the cannula and trocar for the cephalomedullary blade were then inserted and taken down to the level of the lateral femoral cortex. At this time guide pin for the cephalomedullary blade was then inserted and AP and lateral images were taken confirming center-center position in the head. When we were satisfied with placement of the pin, pin was then measured and found to be 90 mm and a 90 mm helical blade was thus opened. We then used the lateral cortical reamer followed by the big reamer to ream up in the femoral head for placing the blade. Blade was then impacted in position in routine fashion. Once this was done the cannula for the blade was removed. The locking screw on the nail was then taken all the way down and loosened half a turn in order to allow for dynamic compression. We then turned our attention distally to the need for perfect circles. A perfect AP of the distal end of nail was obtained and a single distal interlocking screw was placed using perfect [place] technique. Once this was done, final AP and lateral images of the hip fracture site and distally at the knee were obtained and saved. All incisions were then copiously irrigated with normal saline. Wounds were then closed with 0 Vicryl suture for deep fascial closure followed by 2-0 Vicryl suture for subcutaneous tissue closure and bhaskar for skin closure. Wounds were then dressed with Xeroform, 4 x 4s and [place] dressing. At this time,patient was then woken up, transferred over hospital stretcher and taken to recovery in stable condition. There were no acute complications during the procedure. All sponge and sharp counts were correct at conclusion of procedure.
[2019-09-09] MEDS: COLACE PO SCH (23:18)
[2019-09-09] MEDS: REMERON PO SCH (23:18)
[2019-09-09] MEDS: ZOCOR PO SCH (23:18)
[2019-09-10] MEDS: SYNTHROID PO SCH (06:16)
[2019-09-10 07:03] LABS: AGAP 10; ALB/GLOB RATIO 0.7; ALBUMIN 2.2 g/dL (3.5-5.0); ALKALINE PHOSPHATASE 63 U/L (32-104); BUN 11 mg/dL (8-22); CALCIUM 8.1 mg/dL (8.8-10.2); CHLORIDE 105 mmol/L (98-107); COSMO 278; CREATININE 0.5 mg/dL (0.5-0.9); ESTIMATED GFR > 60; GLUCOSE 86 mg/dL (70-104); GOT 11 U/L (10-30); GPT 5 U/L (10-36); MAGNESIUM 1.9 mg/dL (1.5-2.7); POTASSIUM 3.8 mmol/L (3.5-5.1); SODIUM 140 mmol/L (136-145); TCO2 25 mmol/L (25-35); TOTAL BILIRUBIN 0.45 mg/dL (0.20-1.00); TOTAL PROTEIN 5.2 g/dL (6.3-8.3)
[2019-09-10 07:12] LABS: EOS# 0.13 X1000 (0.0-0.7); EOS% 2.3 % (0.0-10.0); HEMATOCRIT 25.7 % (37.0-47.0); HEMOGLOBIN 7.9 g/dL (12.0-16.0); LYMPH# 1.07 X1000 (1.2-3.4); LYMPH% 18.9 % (20.5-51.1); MCH 30.5 PG (27-31); MCHC 30.7 g/dL (33-37); MCV 99.2 FL (81-99); MONO# 0.69 X1000 (0.11-0.59); MONO% 12.2 % (1.7-9.3); MPV 8.7 FL (7.4-10.4); NEUT# 3.76 X1000 (1.4-6.5); NEUT% 66.6 % (42.2-75.2); PLT 298 X1000 (130-400); RBC 2.59 XMIL (4.2-5.4); RDW 13.7 % (11.5-14.5); WBC 5.65 X1000 (4.8-10.8)
[2019-09-10] MEDS: ROCEPHIN 1 GM in NS 50 ML IV SCH (10:38)
[2019-09-10] MEDS: FERROUS SULFATE PO SCH (10:39)
[2019-09-10] MEDS: TOPROL XL PO SCH (10:39)
[2019-09-10] MEDS: PEPCID PO SCH (10:39)
[2019-09-10] MEDS: ASPIRIN EC PO SCH (10:39)
--- NOTE | 2019-09-10 11:45 | ORTHOPAEDICS PROGRESS NOTE ---
DATE: 09/10/2019 SUBJECTIVE: Ms. Rogers is seen status post Achilles tendon debridement, TFN fixation of the right hip. OBJECTIVE: At the present time, she is afebrile with stable vital signs. Hematocrit has dropped down to 25.7. The bandage is clean and dry. ASSESSMENT AND PLAN: She can be mobilized today. She will need to continue to be monitored for drop in her hematocrit. Currently, she appears to be relatively stable postoperatively considering her age and overall condition. cc: Colin Meza MD
[2019-09-10] MEDS ORDERED: MORPHINE IV PRN (16:18)
--- NOTE | 2019-09-10 17:36 | PROGRESS NOTE ---
DATE: 09/10/2019 INTERVAL HISTORY: No acute events overnight. I had a discussion with the patient yesterday in the morning time, and I had informed the patient that she had she had an abnormality in the right side of the lung, and she would need to see a doctor outpatient, and she had understood it. During the later part of the day, I did have a discussion with the patient's daughter in law and patient's son about the lung abnormality, and I had told them that it was likely cancer, though no stated diagnosis, and they understood it and they wanted to pursue it outpatient once hip surgery is done and her course becomes normal after the surgery. So, they have requested me to provide an outpatient oncology, which I will do. SUBJECTIVE: Ms. Rogers denies chest pain, shortness of breath, or cough. She is complaining of some pain in the right lower extremity. VITALS: Temperature 98.2, pulse 106, respiratory rate 20, blood pressure 135/55, saturating 95% on 2 L nasal cannula. PHYSICAL EXAMINATION: General: Not in acute distress. HEENT: Oral cavity is moist. Air entry bilaterally equal. No wheezes, rhonchi or crackles. Cardiovascular: S1, S2 normal. No murmur or gallop. Abdomen: Soft, nontender. Extremity: No lower extremity edema. She has right-sided lateral thigh wounds, which are not bleeding. LABS: Suggestive of drop in hemoglobin of 7.9. Normal electrolytes. Microbiology: Showing a urine culture growing Klebsiella pneumoniae which is sensitive to first-generation cephalosporin. ASSESSMENT AND PLAN: 1. Comminuted intertrochanteric displaced fracture of the right femur status post closed reduction and intramedullary nailing on September 09. Today is postoperative day 1. Continue enoxaparin for deep venous thrombosis prophylaxis, as-needed morphine and oxycodone for pain. I will consult Physical Therapy and Scale Assembly Set Up Worker for rehab plans. 2. Acute cystourethritis due to Klebsiella pneumoniae, and acute urinary tract infection. Change antibiotics to oral Keflex starting tomorrow. 3. Right lower lung mass suspicious for cancer. The patient did have a prior history of smoking which she quit many years ago. Outpatient oncology referral has been provided as per request by her daughter in-law. 4. Hypothyroidism and chronic gastroesophageal reflux disease. Continue home famotidine and levothyroxine. 5. Essential hypertension. Continue metoprolol succinate extended release, and simvastatin for hyperlipidemia. DISPOSITION: Awaiting physical therapy and rehab. Plan of care discussed with the patient and her family. Their questions have been answered. cc: Juan Alberto Carnes MD
[2019-09-10] MEDS: LOVENOX SUBQ SCH (18:49)
[2019-09-10] MEDS: COLACE PO SCH (22:49)
[2019-09-10] MEDS: ZOCOR PO SCH (22:49)
[2019-09-10] MEDS: REMERON PO SCH (22:49)
[2019-09-11] MEDS: SYNTHROID PO SCH (06:31)
[2019-09-11 07:53] LABS: BASO# 0.01 X1000 (0.0-0.2); BASO% 0.2 % (0.0-0.8); EOS# 0.11 X1000 (0.0-0.7); EOS% 1.9 % (0.0-10.0); HEMOGLOBIN 7.7 g/dL (12.0-16.0); IMM GRAN# 0.02 X1000 (0.0-0.04); IMM GRAN% 0.4 % (0.0-0.5); LYMPH# 1.07 X1000 (1.2-3.4); LYMPH% 18.9 % (20.5-51.1); MCH 30.3 PG (27-31); MCHC 30.8 g/dL (33-37); MCV 98.4 FL (81-99); MONO# 0.71 X1000 (0.11-0.59); MONO% 12.5 % (1.7-9.3); MPV 8.8 FL (7.4-10.4); NEUT# 3.75 X1000 (1.4-6.5); NEUT% 66.1 % (42.2-75.2); PLT 291 X1000 (130-400); RBC 2.54 XMIL (4.2-5.4); RDW 13.5 % (11.5-14.5); WBC 5.67 X1000 (4.8-10.8)
[2019-09-11] MEDS: PEPCID PO SCH (09:19)
[2019-09-11] MEDS: TOPROL XL PO SCH (09:19)
[2019-09-11] MEDS: FERROUS SULFATE PO SCH (09:19)
[2019-09-11] MEDS: ASPIRIN EC PO SCH (09:19)
--- NOTE | 2019-09-11 10:55 | ORTHOPAEDICS PROGRESS NOTE ---
DATE: 09/11/2019 Ms. Rogers is seen status post TFN fixation of a right hip fracture. Her note yesterday was inaccurate on my progress note. Of note, she was seen yesterday for the hip. Today, she is also seen again for postop management of her hip fracture. Her bandages are clean and dry. Her compartments are all soft. Postsurgically, she is stable. There is no evidence of DVT or infection. She is slow to mobilize and will require rehab. She can be transferred to rehab when a bed is available. She is stable orthopedically currently. cc: Colin Meza MD
[2019-09-11] MEDS: OXY IR PO PRN ×2 (16:21→23:10)
[2019-09-11] MEDS: LOVENOX SUBQ SCH (18:09)
--- NOTE | 2019-09-11 20:40 | PROGRESS NOTE ---
DATE: 09/11/2019 INTERVAL HISTORY: No acute events overnight. SUBJECTIVE: Ms Rogers denies any chest pain or shortness of breath, she is occasionally coughing but is not able to produce any sputum. She says occasionally she has right lower extremity pain. I discussed with her about an abnormal structure in the right lung and need for outpatient followup with physician, she understood it. I told her that she may need a biopsy in future to rule out cancer. Currently vitals temperature 98.3 degrees, pulse 87, respiratory 20, blood pressure 111/92, saturating 99% on 2 L nasal cannula. PHYSICAL EXAMINATION: Not in acute distress. Oral cavity is moist. Air entry bilaterally equal. No wheeze, rhonchi, crackles. She does have poor breath sounds bilaterally. S1, S2 normal. She has systolic murmur affecting right 2nd intercostal space. She has right-sided lateral thigh wound. She is able to wiggle both of her toes. She is alert and oriented x3. She does not have urine catheter. LABS: Suggestive of hemoglobin of 7.7, platelet of 291,000. No BMP today, no microbiology. Her urine culture is growing Klebsiella pneumoniae. ASSESSMENT AND PLAN: 1. Comminuted intertrochanteric fracture of right femur status post closed reduction, intramedullary nailing on September 09. Today is postoperative day 2. Continue enoxaparin for deep venous thrombosis prophylaxis, as needed morphine, oxycodone for pain. Physical therapy has been consulted for further management. 2. Acute cystourethritis due to Klebsiella pneumoniae leading to acute urinary tract infection. Continue oral cephalexin for UTI. 3. Right lower lung mass suspicious for cancer with prior history of smoking which she quit many years ago. Outpatient Oncology referral would be provided the time of discharge. 4. Hypothyroidism, chronic gastroesophageal reflux disease. Continue famotidine and levothyroxine. 5. Essential hypertension, continue metoprolol succinate extended release and simvastatin for hyperlipidemia. DISPOSITION: Awaiting rehab. Plan of care discussed with patient and her questions have been answered. cc: Juan Alberto Carnes MD
[2019-09-11] MEDS: COLACE PO SCH (23:10)
[2019-09-11] MEDS: ZOCOR PO SCH (23:10)
[2019-09-11] MEDS: REMERON PO SCH (23:10)
[2019-09-11] MEDS: KEFLEX PO SCH (23:10)
[2019-09-12] MEDS: SYNTHROID PO SCH (06:27)
[2019-09-12] MEDS: KEFLEX PO SCH ×4 (06:27→22:10)
[2019-09-12 08:04] LABS: AGAP 11; BUN 8 mg/dL (8-22); CALCIUM 7.8 mg/dL (8.8-10.2); CHLORIDE 100 mmol/L (98-107); COSMO 273; CREATININE 0.5 mg/dL (0.5-0.9); ESTIMATED GFR > 60; GLUCOSE 76 mg/dL (70-104); POTASSIUM 3.6 mmol/L (3.5-5.1); SODIUM 138 mmol/L (136-145); TCO2 27 mmol/L (25-35)
[2019-09-12 08:27] LABS: BASO# 0.01 X1000 (0.0-0.2); BASO% 0.1 % (0.0-0.8); EOS# 0.23 X1000 (0.0-0.7); EOS% 3.4 % (0.0-10.0); HEMATOCRIT 25.8 % (37.0-47.0); IMM GRAN# 0.02 X1000 (0.0-0.04); IMM GRAN% 0.3 % (0.0-0.5); LYMPH# 1.56 X1000 (1.2-3.4); LYMPH% 23.3 % (20.5-51.1); MCH 30.7 PG (27-31); MCV 98.9 FL (81-99); MONO# 0.68 X1000 (0.11-0.59); MONO% 10.2 % (1.7-9.3); MPV 8.9 FL (7.4-10.4); NEUT# 4.19 X1000 (1.4-6.5); NEUT% 62.7 % (42.2-75.2); PLT 343 X1000 (130-400); RBC 2.61 XMIL (4.2-5.4); RDW 13.5 % (11.5-14.5); WBC 6.69 X1000 (4.8-10.8)
[2019-09-12] MEDS: ASPIRIN EC PO SCH (09:19)
[2019-09-12] MEDS: TOPROL XL PO SCH (09:19)
[2019-09-12] MEDS: FERROUS SULFATE PO SCH (09:19)
[2019-09-12] MEDS: PEPCID PO SCH (09:19)
[2019-09-12] MEDS: PERIDEX MT SCH ×2 (09:19→22:10)
--- NOTE | 2019-09-12 11:44 | ORTHOPAEDICS PROGRESS NOTE ---
DATE: 09/12/2019 SUBJECTIVE: No acute events overnight. Patient states her pain is controlled. She has gotten up around the room with physical therapy. She is awaiting rehab placement. She is tolerating a diet. OBJECTIVE: Afebrile. Vital signs are stable. Hematocrit is 26. Extremities: Examination of right lower extremity shows surgical incisions and dressing sites to be clean, dry, intact with no drainage. Thigh and calf soft and compressible. Toes are up and downgoing. Neurovascularly intact. Examination of right hip shows skin intact. Very mild tenderness to palpation over the lateral aspect of her hip. No pain with log roll to the hip. ASSESSMENT: An 89-year-old female status post closed reduction and intramedullary nailing right of intertrochanteric femur fracture, postoperative day 3. PLAN: 1. PT to mobilize. Weightbearing as tolerated to the right lower extremity. Ambulate with assistive device. 2. Ice to right lower extremity as needed for pain. 3. Continue oral Keflex for Klebsiella UTI. 4. Patient will get outpatient oncology workup for a new finding of right lower lung mass. 5. Appreciate hospitalist recommendations. 6. Disposition per primary team. Plan is to discharge to inpatient rehab facility. I will see her in clinic in 2 weeks for wound check and x-rays.
--- NOTE | 2019-09-12 12:05 | PROGRESS NOTE ---
DATE: 09/12/2019 INTERVAL HISTORY: No acute events overnight. Ms. Rogers denies any chest pain, shortness of breath. While using incentive spirometer, she has occasional cough. She denies any fever. She has not been out of bed yet. She states she has not had any bowel movement today yet. OBJECTIVE: Vital Signs: Temperature 98.3 degrees, pulse 91, respiratory rate 18, blood pressure 97/41. She is saturating 95% on 2 liters nasal cannula. General: On physical examination, she is not in any acute distress. HEENT: Oral cavity is moist. She has missing teeth and poor dental hygiene. Lungs: Air entry bilaterally equal. No wheeze, rhonchi, crackles. Cardiac: She has a systolic murmur affecting right 2nd intercostal space. Skin: She has right-sided lateral thigh wound, which is dressed without any oozing or soaking. Abdomen: Soft, nontender. Extremities: She is able to wiggle both lower extremities. Neurologic: She is alert and oriented x3. LABS: Suggest hemoglobin of 8, platelet count of 343,000. BUN of 8 and creatinine 0.5. No new microbiological data. No new imaging. ASSESSMENT AND PLAN: 1. Comminuted intertrochanteric fracture of right femur, status post closed reduction and intramedullary nailing on September 09. Today is postoperative day 3. Continue enoxaparin for deep venous thrombosis prophylaxis, as needed morphine and oxycodone for pain. Physical therapy has been consulted to help her ambulate. I will start her on bisacodyl and MiraLAX to avoid constipation as needed. [facility] has been consulted for rehab. 2. Acute cystourethritis due to Klebsiella pneumoniae leading to acute urinary tract infection. Continue oral cephalexin. 3. Right lower lung mass suspicious for cancer with prior history of smoking, which she quit many years ago. Outpatient Oncology referral will be provided at the time of discharge. I had a discussion about this abnormal finding on the CT scan with the patient, as well as her family, including daughter and daughter in-law, and they wanted to have a detailed discussion with the oncologist outpatient before pursuing any workup. 4. Others. Continue levothyroxine for hypothyroidism, famotidine for chronic GERD, metoprolol succinate extended release for essential hypertension, and simvastatin for hyperlipidemia. 5. Acute blood loss anemia due to blood loss sustained during surgery. I will keep her on iron and multivitamin tablets. She is not low enough to require blood transfusion. DISPOSITION: Awaiting rehab. human services supervisor on board. cc: Juan Alberto Carnes MD
[2019-09-12] MEDS: DULCOLAX PR SCH ×2 (14:23→22:11)
[2019-09-12] MEDS: OXY IR PO PRN (14:23)
[2019-09-12] MEDS: LOVENOX SUBQ SCH (17:57)
[2019-09-12] MEDS: REMERON PO SCH (22:11)
[2019-09-12] MEDS: ZOCOR PO SCH (22:11)
[2019-09-13] MEDS: OXY IR PO PRN ×2 (04:10→16:34)
[2019-09-13] MEDS: KEFLEX PO SCH ×3 (06:31→16:34)
[2019-09-13] MEDS: SYNTHROID PO SCH (06:31)
[2019-09-13 08:06] LABS: BASO# 0.01 X1000 (0.0-0.2); BASO% 0.2 % (0.0-0.8); EOS# 0.16 X1000 (0.0-0.7); EOS% 2.5 % (0.0-10.0); HEMATOCRIT 24.9 % (37.0-47.0); HEMOGLOBIN 7.7 g/dL (12.0-16.0); IMM GRAN# 0.02 X1000 (0.0-0.04); IMM GRAN% 0.3 % (0.0-0.5); LYMPH# 1.27 X1000 (1.2-3.4); LYMPH% 19.8 % (20.5-51.1); MCH 30.6 PG (27-31); MCHC 30.9 g/dL (33-37); MCV 98.8 FL (81-99); MONO# 0.72 X1000 (0.11-0.59); MONO% 11.2 % (1.7-9.3); MPV 8.8 FL (7.4-10.4); NEUT# 4.24 X1000 (1.4-6.5); PLT 359 X1000 (130-400); RBC 2.52 XMIL (4.2-5.4); RDW 13.4 % (11.5-14.5); WBC 6.42 X1000 (4.8-10.8)
[2019-09-13] MEDS ORDERED: THERA M PLUS PO SCH (09:00)
[2019-09-13 09:33] LABS: AGAP 8; BUN 7 mg/dL (8-22); CHLORIDE 98 mmol/L (98-107); COSMO 269; CREATININE 0.5 mg/dL (0.5-0.9); ESTIMATED GFR > 60; GLUCOSE 77 mg/dL (70-104); POTASSIUM 3.9 mmol/L (3.5-5.1); SODIUM 136 mmol/L (136-145); TCO2 30 mmol/L (25-35)
--- NOTE | 2019-09-13 09:43 | ORTHOPAEDICS PROGRESS NOTE ---
DATE: 09/13/2019 SUBJECTIVE: No acute events overnight. Patient states her pain is controlled. She got up with physical therapy and ambulated several steps around the room and went from bed to chair yesterday. She is tolerating a diet. She is urinating voluntarily. OBJECTIVE: Afebrile. Vital signs are stable. Labs pending.Extremities: Examination of right lower extremity shows surgical dressing to be clean, dry, intact. Thigh and calf soft and compressible. Neurovascularly intact. ASSESSMENT: An 89-year-old female status post closed reduction intramedullary nailing right intertrochanteric femur fracture. Postop day 4. PLAN: 1. Patient is weightbearing as tolerated right lower extremity. Physical therapy to mobilize with assistive device. 2. Lovenox DVT prophylaxis. 3. Ice right lower extremity as needed for pain. 4. Appreciate hospitalist's recommendations. 5. Disposition per primary team. Patient is planning on being discharged to are to rehab or correction facility. She will follow up with me in 2 weeks for wound check and serial x- rays.
[2019-09-13] MEDS: PERIDEX MT SCH (09:50)
[2019-09-13] MEDS: PEPCID PO SCH (09:50)
[2019-09-13] MEDS: ASPIRIN EC PO SCH (09:50)
[2019-09-13] MEDS: FERROUS SULFATE PO SCH (09:51)
[2019-09-13] MEDS: TOPROL XL PO SCH (09:51)
[2019-09-13] MEDS: DULCOLAX PR SCH (09:52)
--- NOTE | 2019-09-13 14:36 | DISCHARGE SUMMARY ---
ADMISSION DATE: 09/08/2019 DISCHARGE DATE: 09/13/2019 FINAL DISCHARGE DIAGNOSES: 1. Status post closed reduction and intramedullary nailing of a right intertrochanteric fracture of the right femur. 2. Urinary tract infection secondary to Klebsiella pneumoniae. 3. Right lower lobe lung mass suspicious for malignancy. 4. Coronary artery disease. 5. Hypothyroidism. 6. Status post permanent pacemaker. 7. Dyslipidemia. 8. Gastroesophageal reflux disease. 9. Anemia of acute blood loss. CONSULTATIONS: Orthopedic consultation with Dr. Rosas. PROCEDURES: Closed reduction intramedullary nailing of a right intertrochanteric femur fracture performed on 09/09/2019. HOSPITAL COURSE: Ms. Rogers is an 89-year-old female with a history of coronary artery disease, hypothyroidism, and GERD, who presented to the ER after suffering a fall at home. In the ER, a CT of the pelvis was done that revealed an intertrochanteric fracture of the right femur. Also, the patient was noted to have a urinary tract infection. The patient was admitted to the Hospitalist Service, and a urine culture was obtained. The patient was initially started on Rocephin pending culture results. Also, a CT of the chest was done that revealed a right lower lobe mass that was suspicious for malignancy. The patient was taken to the OR on 09/09/2019, at which time a closed reduction intramedullary nailing of a right intertrochanteric femur fracture was performed. The patient did well postoperatively. Ultimately, the urine culture grew out Klebsiella pneumoniae. The patient continued to improve clinically, and was transitioned to cephalexin on 09/11/2019. Dr. Gaviria was consulted in light of the lung mass that was seen on the CT. He had a discussion with the patient's family, and the patient will follow up once she is discharged from inpatient rehab, to discuss further workup of the lung mass. At this time, the patient is medically stable for discharge to inpatient rehabilitation. The patient's hemoglobin is 7.7 and hematocrit is 24. The patient is also on iron supplementation. DISCHARGE MEDICATIONS: 1. Ferrous sulfate 325 mg oral daily. 2. Keflex 500 mg oral twice a day x5 days. 3. Percocet 5/325 one tablet oral every 6 hours p.r.n. for pain. 4. Toprol-XL 25 mg oral daily. 5. Synthroid 75 mcg oral daily. 6. Ranitidine 20 mg p.o. at bedtime. 7. Simvastatin 20 mg oral at bedtime. 8. Aspirin 81 mg oral daily. 9. Mirtazapine 15 mg oral at bedtime. DISCHARGE DIET: Low-sodium, low-cholesterol diet. ACTIVITY: As tolerated. FOLLOWUP INSTRUCTIONS: The patient will need to follow up with Dr. Rosas in 2 weeks. The patient will need to follow up with Dr. Gaviria as scheduled by his clinic once the patient has been discharged from inpatient rehab. cc: Cecily Mac MD
[2019-09-13 16:52] VITALS: BP 111/51
--- NOTE | 2019-09-13 18:17 | HEMO/ONC CONSULTATION ---
DATE: 09/13/2019 REASON FOR CONSULTATION: Lung mass. HPI: Ms. Rogers is an 89-year-old female who was admitted to the hospital on 09/08/2019 after a fall at home and was found to have a right hip fracture upon evaluation in the ER. She tripped at home while getting dressed. There were no other obvious signs of injury. She did not hit her head. 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 She has been referred to us for further management. PAST MEDICAL HISTORY: 1. Coronary artery disease with a history of NE. 2. Hypertension. 3. Hypothyroidism. 4. GERD. 5. Hyperlipidemia. SURGICAL HISTORY: 1. Permanent pacemaker with leads replaced at one point, the generator replaced at one point, and this is a [employer]. 2. Left hip replacement. 3. Hysterectomy. SOCIAL HISTORY: The patient moved here this week from [place]. Her PCP remains in [place]. She quit smoking over 60 years ago. No alcohol or illicit drugs. DRUG ALLERGIES: No known drug allergies. HOME MEDICATIONS: Aspirin, Cozaar, Synthroid, mirtazapine, ranitidine, simvastatin, Toprol XL. REVIEW OF SYSTEMS: Vital signs: Temperature 98.1 degrees, pulse rate 97, respiratory rate 20, blood pressure 111/51, O2 saturation 92% on room air. General: The patient is in 3/10 right leg, hip and thigh pain. PHYSICAL EXAMINATION: General: Patient is in no acute distress. HEENT: Sclerae are anicteric. PERRLA. Oral mucosa is normal. Poor dentition. Respiratory: Lung sounds are clear. Normal respiratory effort. Cardiovascular: A systolic murmur noted. Regular rate and rhythm. Abdomen: Soft, nontender, nondistended. Extremities: Dressing to right- sided lateral thigh wound. Able to wiggle both feet Skin: Warm and dry. Neurological: Alert and oriented x3. Very hard of hearing. LABORATORY: WBC 6.42, hemoglobin 7.7, hematocrit 24.9, platelet count 359,000. RADIOLOGY: Postop hip x-ray shows orthopedic fixation of intertrochanteric right hip fracture. Good alignment. 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 Mass is loculated measuring 4.4 cm in anterior-posterior dimension. There is apparent COPD. Head CT: No acute intracranial abnormality. CT cervical spine: Degenerative disease. No evidence of acute fracture. Chest x-ray: Mild subsegmental atelectasis at left base, 4.2 cm rounded opacity at right lower lung. ASSESSMENT: 1. Right hip fracture. This was surgically repaired per Orthopedic surgery. The patient recovered well and is going home today. 2. Lung mass. The patient will follow up with us in the clinic once she has recovered and been discharged from inpatient rehab. 3. Coronary artery disease and dyslipidemia. Aware. 4. Anemia of acute blood loss. Aware. We will monitor in the clinic. Dictated by SHIKHA Rolon for Abelardo Gaviria MD Discussed with family. We will evaluated lung mass as outpatient once she is discharged from rehab. Abelardo Gaviria MD cc: Abelardo Gaviria MD [facility]
== END 2019-09-13 17:41 | DRG 481 ==
LOC: EDBD → P.ED 07:20 → 4N 11:20 → SUATTDRO 11:20
PROVIDERS: ATTEND Internal Medicine